=== PATIENT | male | born 1985 | race Caucasian/White ===

== ENCOUNTER 2025-02-14 06:08 | Emergency (ER) | payer OTHER, SELFPAY ==
[2025-02-14 06:09] VITALS: BP 198/117; PULSE 116; RESP 18; TEMP 38.9; O2SAT 99; BMI 54.5
--- NOTE | 2025-02-14 06:12 | ECG_ITS ---
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 Measurements Intervals [place] Rate: 115 P: 35 [place]: 176 QRS: -47 QRSD: 94 T: 26 QT: 305 QTc: 423 Interpretive Statements SINUS TACHYCARDIA POSSIBLE ANTERIOR MYOCARDIAL INFARCTION , PROBABLY OLD [30 ms Q WAVE IN V3/V4, OR R < 0.2 mV IN V4] INFERIOR MYOCARDIAL INFARCTION , PROBABLY OLD [40+ ms Q WAVE AND/OR ST/T ABNORMALITY IN II/aVF] No previous ECG available for comparison Electronically Signed On 02-16-2025 21:43:50 CDT by Boston Faria M.D. [email or web address]
--- OUTSIDE RECORDS SUMMARY | 2025-02-14 06:12 | XMS_ITS | Data Portability ---
Author Organization [facility], LukaszMarybel, [facility] Address [address] [facility] [address] [place] [address] Assessment Encounter Date Assessment Date Assessment LastModified by Organization Details LastModified Time 08/17/2024 08/17/2024 Document scribed by Duane Dias, Assembler Arranger. I was present during interview and exam. I have reviewed and agree with above documentation . Dr. Yovani Redd. [email or web address] Not available 08/17/2024 16:27:39 Plan of Treatment Reminders Order Date Submit Date Provider Last Modified By Organization Details Last Modified Time Details Appointments None recorded. Lab hemoglobin A1C/hemoglo bin total, QN, blood 2024 025 [email or web address] [facility], [address], [facility] [address], [place], [address], 09:03:48 CMP, serum or plasma 2024 025 [email or web address] [facility], [address], [facility] [address], [address], 09:03:48 lipid panel, blood 2024 025 [email or web address] [facility], [address], [facility] [address], [place], [address], 09:03:48 CBC 2024 025 [facility], [address], [facility] [address], [place], [address], 09:03:48 Referral None recorded. Procedures None recorded. Surgeries None recorded. Imaging None recorded. Medication Orders Airsupra 90 mcg-80 mcg/actuati on HFA aerosol inhaler [address], [address], [place], [address], 5 07:38:11 lisinopril 20 mg tablet [address], [address], [place], [address], 5 07:38:11 Patient TargetsNo targets recorded. Patient InstructionsNo instructions recorded. Reason for Referral None Reported. Problems Name Problem SNOMED Code Status Onset Date Resolution Date Notes Provider Name and Address Organization Details Recorded Time Essential hypertension 96111003 Active 2024 Medina hurt [facility]CMarybel 15:56:31 Asthma 406518563 Active 2024 Med[facility] hurt [facility]CMarybel 15:56:40 Transient cerebral ischemia 135075714 Active 2024 Medina hurt [facility]CMarybel 15:56:46 Problem Notes None recorded. Procedures Surgical History Date Name Laterality Status Provider Name and Address Organization Details Recorded Time tonsillectomy completed Medina Mariscal [facility], LMarybelLTisha 08/17/2024 16:02:15 procedure on shoulder completed Medina Mariscal [facility], LMarybelLMarybelCMarybel 08/17/2024 16:03:01 hemorrhoidectomy completed Medina Mariscal [facility], LMarybelLTisha 08/17/2024 16:03:09 Imaging Results None recorded. Procedure Notes None recorded. Medical Equipment None Reported. Medications Name Sig Start Date Stop Date Status Note LastModified by Organization Details LastModified Time fluticasone 250 mcg-salmeter ol 50 mcg/dose blistr powdr for inhalation Inhale 1 puff twice a day by inhalation route. active Not Available Not Available No t Available albuterol sulfate 2.5 mg/3 mL (0.083 %) solution for nebulization Inhale 3 mL as needed by nebulizatio n route. active Not Available Not Available No t Available lisinopril 20 mg tablet Take 1 tablet every day by oral route for 90 days. 2024 active Not Available Not Available Not Avai lable aspirin 81 mg tablet Take by oral route. active Not Available Not Available Not Available Airsupra 90 mcg-80 mcg/actuatio n HFA aerosol inhaler Inhale 2 inhalations every 4 hours by inhalation route as needed, for Asthma. 2024 active Not Available Not Available Not Avai lable Vitals Date Recorded Body weight Body mass index (BMI) Body height Oxygen saturation Oxygen saturation in Arterial blood by Pulse oximetry Heart rate Respiratory rate Systolic And Diastolic Provider Name and Address Organization Details Last Updated DateTime 026785. 98 g 51.1 kg/m2 177.8 cm 99 % 99 % 74 /min 18 /min 132/70 mm[Hg] Medina Mariscal [facility] 16:08:10 Social History Question Answer Notes LastModified by [employer] Details LastModified Time Tobacco Smoking Status Never Smoker Medina hurt [facility] 08/17/2024 15:59:45 What Is Your Level Of Caffeine Consumption? Occasional [email or web address] Information not available 08/17/2024 What Was The Date Of Your Most Recent Tobacco Screening? 08/17/2024 [email or web address] Information not available 08/17/2024 Sex: Unknown Functional Status Question Answer Note LastModified by [employer] Details LastModified Time Do you use any illicit or recreational drugs? No [email or web address] Information not available 08/17/2024 Do you or have you ever used any other forms of tobacco or nicotine? No [email or web address] Information not available 08/17/2024 What is your level of alcohol consumption? None Information not available 08/17/2024 Do you or have you ever used any nicotine-free cigarettes, vape, or chewing tobacco? No [email or web address] Information not available 08/17/2024 Mental Status None recorded. Family History Relationship Description Onset Age of this Age Resolved Age Notes LastModified by Organization Details LastModified Time Mother Congestive heart failure [email or web address] Not available 2024 16:00:51 Father Polyp of colon precan cerous colon polyps [email or web address] Not available 08/17/2024 16:01:35 Medical History No medical history recorded. Past Encounters Encounter ID Performer Location Encounter Start Date Encounter Closed Date Diagnosis/Indication Diagnosis SNOMED-CT Code Diagnosis ICD10 Code Diagnosis IMO Codes Diagnosis Note [id number] Yovani Redd DO [facility]) [address] [place] [phone] 08/17/2024 15:33:56 08/18/2024 13:29:41 Asthma 342167906 J45.909 Stable, twice daily Advair, Albuterol neb PRN. Start Airsupra. I counseled the patient on diagnosis, treatment options, medication s, and expectatio ns. All questions were addresssed . They were instructed to call the office or come in for Follow Up with any questions, concerns, or worsening problems. Essential hypertension 63257885 I10 Stable, continue Lisinopril 20mg daily. Transient cerebral ischemia 756927863 G45.13 Jun 2023.Victoriano nues daily Asa 81mg. Morbid obesity 945217084 E66.01 Counseled on diet and exercise. A1c today. Health Concerns Section Related Observation LastModified by Organization Detai ls LastModified Time None Recorded Concern Status LastModified by Organization Details LastModified Time None Recorded Advance Directives Directive None Recorded Payers Insurance Date Sequence Insurance Name Policy Number Policy Sewell Covered Member ID Sewell Member ID Guarantor Name 08/17/2024 1 [facility] ([facility] [id number] Keyur Morataya [id number] Keyur Morataya Notes Date Note Type Note Provider Name and Address Organization Details Recorded Time 08/17/2024 text/html Annual WellnessReported by PatientSocial/Behavior al HistoryFor physical activity, patient reportsdoes not exercise on a regular basisbut reportsrecent increase in physical activityandgood physical condition. For diet and nutrition, patient reportshealthy diet. For fracture risk, patient reportsno history of fractures,no recent explained fracture,no sudden unexplained fractures, andno previous musculoskeletal injuries. For additional lifestyle factors, patient reportsno tobacco useandno alcohol intake.Mental Status:For depression risk, patient reportsnever feels sad, empty, or tearful,no loss of interest in activities,no significant changes in weight,no sleep disturbances or insomnia,no agitation,no loss of energy,no feelings of worthlessness or guilt,no thoughts of suicide,no history of depression, andno history of mood disorders.Functional AbilityFor hearing, patient reportsno loss of hearing. For vision, patient reportsno vision problems.ROS as noted in the HPI Pt presents to establish care, Previous PCP: Mane Irving DO - [facility] - [place], [place] Recently moved local to be closer to grandparents, located in [facility], [place] [facility]. Pt has 2 children [address]. He has Asthma since he was a child, HTN, and TIAHe was started on asa 81 mg daily for the TIAHe takes albuterol rescue inhaler, and albuterol nebulizer tx as needed, lisinopril 20mg daily, and Advair inhaler Asthma typically flares up on him when he has had a cold or allergies.No recent hospitalization r/t Asthma. He does not check his bp at home, 132/70 in clinic today. Last had lab work mid 2023. No recent hospitalizations or ER visits since Jun 2023 when he had TIA. TIA presumed, the only thing found abnormal when he had w/u with a low K+. Fhx: Mother with CHF. Several maternal uncles with Heart Disease. Never smoker. No chewing tobacco. No alcohol use.Working FT from home. Trying to exercise regularly, walking daily. Yovani Redd DO [address] [place] [address], [phone], [facility] 08/18/2024 09:13:41
--- NOTE | 2025-02-14 06:14 | XR_ITS ---
WS: [id number] XR chest 1V portable [id number] REASON FOR EXAM: chest pain FINDINGS: The heart and the mediastinum are within normal limits. Minimal calcified granulomatous disease bilaterally. No acute pulmonary parenchymal or pleural abnormality. Mild degenerative spondylosis in the mid and lower thoracic spine. XR/XR chest 1V portable [id number] IMPRESSION: No acute chest abnormality.
--- NOTE | 2025-02-14 06:16 | ED_ITS ---
HPI - Chest Pain 2 General: Chief Complaint: Chest Pain Stated Complaint: slight chest pressure and sob, nausea, abd pain Time Seen by Provider: 02/14/25 06:10 History of Present Illness: 39-year-old male presents emergency room with complaints of intermittent chest discomfort for the last 5 hours. He describes it more as a pressure he has had a fever as well and a mild cough. He has not had any vomiting or diarrhea no history of coronary artery disease. He does have a history of some mild asthma. He does not feel like he has been wheezing wheezing no productive cough. Associated symptoms: Reports fever(s); Deny abdominal pain or dyspnea Related Data Home Medications ?Medication ?Instructions ?Recorded ?Confirmed albuterol sulfate 1.25 mg/3 mL 1.25 mg inhalation QID PRN 05/04/24 02/14/25 solution for nebulization Shortness Of Breath albuterol sulfate 90 mcg/actuation 2 puff inhalation Q 6H PRN 05/04/24 02/14/25 aerosol inhaler Shortness Of Breath aspirin 81 mg tablet,delayed 81 mg PO DAILY 05/04/24 1 release (Adult Aspirin Regimen) fluticasone 250 mcg-salmeterol 50 1 inh inhalation BID 05/04/24 02/14/25 mcg/dose blistr powdr for inhalation (Advair Diskus) lisinopril 20 mg tablet 20 mg PO DAILY 05/04/2402/02 Allergies Allergy/AdvReac Type Severity Reaction Status Date / Time No Known Allergies Allergy Unverified 05/31/24 11:44 Review of Systems 2 Const: Reports: fever(s); Denies: chills Card: Reports: chest pain Resp: Denies: dyspnea GI: Denies: abdominal pain : Denies: dysuria, urinary frequency or urinary urgency Musc: Denies: neck pain or back pain Skin/Breast: Denies: rash PFSH ED 2 PFSH: Medical History Asthma Hypertension Social History Smoking and tobacco/nicotine status: never used tobacco/nicotine Physical Exam 2 Const: COMMON NORMALS: no acute distress GENERAL APPEARANCE: cooperative and comfortable ORIENTATION/CONSCIOUSNESS: Yes awake, Yes oriented to person, Yes oriented to place and Yes oriented to time HENMT: COMMON NORMALS: normocephalic, atraumatic and hearing grossly normal bilaterally HEAD & SCALP: normocephalic and atraumatic Resp: COMMON NORMALS: normal respiratory effort, No retractions, No use of accessory muscles and clear to auscultation bilaterally AUSCULTATION: clear to auscultation bilaterally Cardio: COMMON NORMALS: regular rate, regular rhythm and No murmurs present (Cardio) RATE: regular rate RHYTHM: regular rhythm GI: COMMON NORMALS: Soft to palpation and No hepatosplenomegaly present A USCULTATION: Yes normoactive bowel sounds PALPATION: Yes Soft to palpation, No Tenderness to palpation present (GI), No Guarding due to palpation present (GI) and Yes No hepatosplenomegaly present Extremity: COMMON NORMALS: normal to inspection, capillary refill normal, no clubbing, cyanosis or edema, no calf tenderness and no pedal edema Neuro: SENSORIUM/ORIENTATION: Yes oriented to person, Yes oriented to place and Yes oriented to time OTHER: No focal neurologic deficits noted Skin: COMMON NORMALS: no rashes or lesions noted GENERAL SKIN EXAM: no rashes or lesions noted Course 2 Vital Signs: Vital signs: Vital Signs Temperature 98.5 F 02/14/25 09:23 Pulse Rate 84 02/14/25 09:23 Respiratory Rate 16 02/14/25 09:23 Blood Pressure 184/107 02/14/25 06:59 Pulse Oximetry 97 02/14/25 09:23 Oxygen Delivery Me thod Room Air 02/14/25 09:23 MDM - Chest Pain Medical Decision Making Patient initially seen laboratory tests ordered. Consideration pneumonia flu COVID acute coronary syndrome pleuritis Labs and imaging reviewed no acute changes on EKG troponins trend normal fever resolved with Tylenol patient states he is feeling much better discharged home suspect viral symptoms with some mild pleuritic symptoms. Encourage patient to monitor his blood pressure as well. No focal neurologic deficit noted at the time of discharge Medical Records I reviewed the patient's medical records. Lab Data I reviewed the patient's lab results. 02/14/25 06:28 02/14/25 06:28 Radiology Impressions Chest X-Ray 02/14/25 06:14 IMPRESSION: No acute chest abnormality. Laboratory Results WBC 6.13 10^3/uL (3.29-11.43) 02/14/25 06: RBC 5.10 10^6/uL (3.85-5.65) 02/14/25 06: Hgb 13.80 g/dL (11.27-16.99) 02/14/25 06: Hct 40.4 % (37-53) 02/14/25 06: MCV 79.2 fl (82-101) L 02/14/25 06: MCH 27.1 pg (27-33) 02/14/25 06: MCHC 34.2 g/dL (30-55) 02/14/25 06: RDW 13.4 % (12.1-15.1) 02/14/25 06: Plt Count 150 10^3/cmm (157-399) L 02/14/25 06: MPV 10.0 fL (7.4-10.4) 02/14/25 06: Neut % (Auto) 80.8 % 02/14/25 06: Lymph % (Auto) 10.1 % 02/14/25 06:28 Dickey % (Auto) 8.2 % 02/14/25 06: Eos % (Auto) 0.2 % 02/14/25 06: Baso % (Auto) 0.2 % 02/14/25: Neut # (Auto) 4.96 10^3/uL (1.8-7.7) 02/14/25 06: Lymph # (Auto) 0.6 10^3/uL (0.8-4.8) L 02/14/25 06: [place]ickey # (Auto) 0.5 10^3/uL (0.2-0.9) 02/14/25 06: Eos # (Auto) 0.0 10^3/uL (0.0-0.8) 02/14/25 06: Baso # (Auto) 0.0 10^3/uL (0.0-0.1) 02/14/25 06: Nucleated RBC % (auto) 0 % 02/14/25 06: Nucleated RBCs # 0.0 /100WBC 02/14/25 06: Sodium 136 mmol/L (136-145) 02/14/25 06:28 Potassium 3.7 mmol/L (3.5-5.1) 02/14/25 06:28 Chloride 99 mmol/L (98-107) 02/14/25 06:28 Carbon Dioxide 24 mmol/L (22-29) 02/14/25 06:28 Anion Gap 16.7 (5-19) 02/14/25 06:28 BUN 15 mg/dL (6-20) 02/14/25 06:28 Creatinine 1.0 mg/dL (0.7-1.2) 02/14/25 06:28 GFR Calculation 82.8 mL/min (90-130) L 02/14/25 06:28 Glucose 109 mg/dL (65-115) 02/14/25 06:28 Calculated Osmolality 283 mOsm/kg (285-295) L 02/14/25 06:28 Lactic Acid 1.2 mmol/L (0.5-2.2) 02/14/25 06:28 Calcium 8.8 mg/dL (8.5-10.5) 02/14/25 06:28 Total Bilirubin 1.1 mg/dL (0.15-1.2) 02/14/25 06:28 AST 24 U/L (0-40) 02/14/25 06:28 ALT 44 U/L (0-41) H 02/14/25 06:28 Alkaline Phosphatase 85 U/L (40-130) 02/14/25 06:28 Troponin T Baseline 7 ng/L (0-15) 02/14/25 06:28 Troponin T 120 Minute 6.92 ng/L (0-15) 02/14/25 08:42 Delta Troponin T -0.08 ABS# (0-10) L 02/14/25 08:42 Total Protein 7.1 g/dL (6.6-8.7) 02/14/25 06:28 Albumin 4.4 g/dL (3.5-5.2) 02/14/25 06:28 Globulin 2.7 g/dL (1.3-4.6) 02/14/25 06:28 Urine Color Yellow (Yellow) 02/14/25 08:10 Urine Appearance Clear (CLEAR) 02/14/25 08:10 Urine pH 6 (5-7) 02/14/25 08:10 Ur Specific [place] 1.020 (1.005-1.030) 02/14/25 08:10 Urine Protein Neg (Negative) 02/14/25 08:10 Urine Glucose (UA) Norm (Normal) 02/14/25 08:10 Urine Ketones 2+ (Negative) H 02/14/25 08:10 Urine Blood Neg (Negative) 02/14/25 08:10 Urine Nitrate Negative (Negative) 02/14/25 08:10 Urine Bilirubin Neg (Negative) 02/14/25 08:10 Urine Urobilinogen Neg mg/dL (Negative) 02/14/25 08:10 Ur Leukocyte Esterase Negative (Negative) 02/14/25 08:10 Amorphous Sediment Not Reportable 02/14/25 08:10 Influenza A (PCR) Negative (Negative) 02/14/25 06:40 Influenza Type B (PCR) Negative (Negative) 02/14/25 06:40 RSV (PCR) Negative (Negative) 02/14/25 06:40 SARS-CoV-2 (PCR) Negative (Negative) 02/14/25 06:40 All radiology interpretation(s) finalized by discharge EKG Data EKG 1: I personally reviewed and interpreted this EKG as follows: EKG interpretation date: 02/14/25 Prior EKG tracings: not available for review Interpretation: EKG 02/14/2025 6:12 AM sinus tachycardia rate of 115. 176 QTc [address] changes noted. Q waves in 2 and aVF also has Q waves in V3 and V4. No previous EKGs available for comparison. EKG 2: I personally reviewed and interpreted this EKG as follows: EKG interpretation date: 02/14/25 Prior EKG tracings: available for review Interpretation: EKG 02/14/2025 8:03 AM normal sinus rhythm rate of 83 IA interval 188 QTc 413 EKG shows no acute changes compared to EKG finding earlier no acute changes noted Discharge Plan Discharge Patient Disposition: Home Clinical Impression: Atypical chest pain, Viral syndrome Condition: Stable Prescriptions: No Action lisinopril 20 mg tablet 20 mg PO DAILY fluticasone propion-salmeterol [Advair Diskus] 250-50 mcg/dose blister with device 1 inh inhalation BID albuterol sulfate 90 mcg/actuation HFA aerosol inhaler 2 puff inhalation Q6H PRN (Reason: Shortness Of Breath) albuterol sulfate 1.25 mg/3 mL solution for nebulization 1.25 mg inhalation QID PRN (Reason: Shortness Of Breath) aspirin [Adult Aspirin Regimen] 81 mg tablet,delayed release (DR/EC) 81 mg PO DAILY Discharge Orders: Discharge ED (Routine); Ordered 02/14/25 Ordered By: Ashwin Bahena Referrals: Yovani Redd, [Primary Care Provider, Family Practice] Discharge Diet: Usual diet Discharge Activity: Increase activity as tolerated Patient Instructions: Opioid Safety, Pain Management, Patient Portal & Nathaly Instructions Activity Restrictions/Additional Instructions: Thank you for choosing [facility] for your healthcare needs today. It is very important that you follow up as instructed or that you return to the Emergency Department should you have concerns or if your condition changes or worsens in any way. Emergency department visits are focused on emergent conditions, in some cases you may require further evaluation on an outpatient basis. You are seen emergency room with complaints of chest comfort and fever. We also noted your blood pressure was elevated. Cardiac enzymes EKGs were normal. Your fever improved with Tylenol. No signs of obvious infection your chest x-ray urine and other testing were all normal. Suspect this is caused by a viral infection. Recommend Tylenol and ibuprofen if your symptoms worsen or change return to the emergency room. (Please note that included in your discharge packet is information concerning opioid safety and pain management. This information is given to all patients were discharged from the ER regardless of their discharge diagnosis or the medicines they usually take or are prescribed.) Print Language: Gambian Coding Level of Care Code ED [facility] Fwd Heart Score HEART Score Components History: Slightly Suspicous EKG: Normal Age: Less than 45 yrs Risk Factors: No Risk Factors Known Troponin: Baseline Trop <16 ng/L HEART Score RESULT HEART Score: 0
[2025-02-14] MEDS: ondansetron 2 mg/ML SDV 2 mL 4 MG IVP (06:36)
[2025-02-14 06:46] LABS: Hematocrit 40.4 % (37-53); Hemoglobin 13.80 g/dL (11.27-16.99); Mean Corpuscular HGB Conc 34.2 g/dL (30-55); Mean Corpuscular Hemoglobin 27.1 pg (27-33); Mean Corpuscular Volume 79.2 fl (82-101); Nucleated Red Blood Cells % 0 %; Platelet Count 150 10^3/cmm (157-399); Red Blood Count 5.10 10^6/uL (3.85-5.65); White Blood Count 6.13 10^3/uL (3.29-11.43)
[2025-02-14 06:59] VITALS: BP 184/107; PULSE 94; RESP 16; O2SAT 96
[2025-02-14 07:07] LABS: Alanine Aminotransferase 44 U/L (0-41); Albumin Level 4.4 g/dL (3.5-5.2); Alkaline Phosphatase 85 U/L (40-130); Anion Gap 16.7 (5-19); Aspartate Amino Transferase 24 U/L (0-40); Blood Urea Nitrogen 15 mg/dL (6-20); Calcium 8.8 mg/dL (8.5-10.5); Carbon Dioxide 24 mmol/L (22-29); Chloride 99 mmol/L (98-107); Creatinine Clr Calc Pharmacy 156.5917; Globulin 2.7 g/dL (1.3-4.6); Glucose 109 mg/dL (65-115); Lactic Sepsis W/Reflex 1.2 mmol/L (0.5-2.2); Osmolality Calculated 283 mOsm/kg (285-295); Potassium 3.7 mmol/L (3.5-5.1); Sodium 136 mmol/L (136-145); Total Protein 7.1 g/dL (6.6-8.7); Troponin(5th) Baseline 7 ng/L (0-15)
[2025-02-14 07:42] LABS: Respiratory Syncytial Virus Ce NEGATIVE (Negative); SARS-CoV-2 PCR NEGATIVE (Negative)
--- NOTE | 2025-02-14 08:14 | ECG_ITS ---
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 Measurements Intervals [place] Rate: 85 P: 22 [place]: 188 QRS: -10 QRSD: 93 T: 26 QT: 346 QTc: 413 Interpretive Statements SINUS RHYTHM INFERIOR INFARCT, OLD Compared to ECG 02/14/2025 06:12:12 Sinus tachycardia no longer present Electronically Signed On 02-16-2025 22:53:24 CDT by Boston Faria M.D. [email or web address]
[2025-02-14 08:15] LABS: Add Urine Microscopic? NO
[2025-02-14 08:42] LABS: Glucose Urine UA Norm (Normal); Nitrate Urine Negative (Negative); Specific Gravity, Urine 1.020 (1.005-1.030)
[2025-02-14 08:43] LABS: Charge for UA Resulting for Rev
[2025-02-14 09:11] LABS: Troponin 5 2HR 6.92 ng/L (0-15)
[2025-02-14 09:23] VITALS: PULSE 84; RESP 16; TEMP 36.9; O2SAT 97
[2025-02-14 09:35] LABS: Troponin 5 2HR Delta -0.08 ABS# (0-10)
== END 2025-02-14 09:50 | disposition home or self-care (01) ==
PROVIDERS: Emergency Provider Family Medicine; PCP Electrodiagnostic Medicine
DX: R07.89 Other chest pain (principal); B34.9 Viral infection, unspecified
CPT/HCPCS: 36415; 71045; 80053; 81003; 83605; 84484; 85025; 87040; 87637; 93005; 96374; 99285; J2405; J7030; J9999